=== PATIENT | female | born 1965 | race African-American/Black ===

== ENCOUNTER 2018-06-10 18:52 | Emergency (ER) | payer SELFPAY ==
--- NOTE | 2018-06-10 20:10 | PDOC ---
Rapid Medical Evaluation Chief Complaint: Injury Time Seen by Provider: 06/10/18 20:01 Medical Evaluation: I have performed a brief in-person evaluation of this patient. The patient presents with a chief complaint of: s/p mechanical fall 2 days ago, c/o R knee, R hip and R arm pain; hx of R hip replacement, cervical and lumbar spinal surgeries Pertinent physical exam findings: +R knee abrasion, no swelling or deformity I have ordered the following: Xray Patient hypertensive in triage (BP checked in both arms); denies hx of HTN; denies cp, sob, jonas, n/v Will get labs, EKG as well The patient will proceed to the ED for further evaluation. 06/10/18 20:06
[2018-06-10 20:12] VITALS: TEMP 97.9; BMI 30.2
[2018-06-10] MEDS ORDERED: ACETAMINOPHEN 325 MG TABLET (FP) ONE (20:28)
[2018-06-10] MEDS ORDERED: ACETAMINOPHEN 325 MG TABLET (FP) PO ONE (20:30)
[2018-06-10 20:47] LABS: BASO % 0.4 % (0-2.0); EOS % 1.7 % (0-4.5); HEMATOCRIT 38.1 % (32.4-45.2); HEMOGLOBIN 12.7 GM/dL (10.7-15.3); LYMPH % 42.2 % (8-40); MCH 26.8 pg (25.7-33.7); MCHC 33.3 g/dl (32.0-36.0); MEAN CELL VOLUME 80.5 fl (80-96); MEAN PLT VOLUME 9.1 fl (7.5-11.1); MONO % 10.7 % (3.8-10.2); PLATELET COUNT 258 K/MM3 (134-434); RBC 4.73 M/mm3 (3.60-5.2); RDW 14.6 % (11.6-15.6); WHITE BLOOD COUNT 9.2 K/mm3 (4.0-10.0)
[2018-06-10 21:09] LABS: ANION GAP 3 MMOL/L (8-16); BLOOD UREA NITROGEN 9 mg/dL (7-18); CALCIUM 8.9 mg/dL (8.5-10.1); CHLORIDE 106 mmol/L (98-107); CO2 30 mmol/L (21-32); CREATININE 0.8 mg/dL (0.55-1.3); GLUCOSE,RANDOM 91 mg/dL (74-106); POTASSIUM 3.8 mmol/L (3.5-5.1); SODIUM 140 mmol/L (136-145)
--- NOTE | 2018-06-10 22:58 | PDOC ---
*Physical Exam - Vital Signs Last Vital Signs Temp Pulse Resp BP Pulse Ox 97.9 F 79 16 199/98 H 100 06/10/18 20:07 06/10/18 20:07 06/10/18 20:07 06/10/18 20:07 06/10/18 20:07 ED Treatment Course - LABORATORY CBC & Chemistry Diagram: 06/10/18 20:21 06/10/18 20:21 - ADDITIONAL ORDERS Additional order review: Laboratory Results 06/10/18 20:21 Sodium 140 Potassium 3.8 Chloride 106 Carbon Dioxide 30 Anion Gap 3 L BUN 9 Creatinine 0.8 Creat Clearance w eGFR 74.47 Random Glucose 91 Calcium 8.9 06/10/18 20:21 RBC 4.73 MCV 80.5 MCHC 33.3 RDW 14.6 MPV 9.1 Neutrophils % 45.0 Lymphocytes % 42.2 H Monocytes % 10.7 H Eosinophils % 1.7 Basophils % 0.4 - Medications Given in the ED: ED Medications Discontinued Medications Generic Name Dose Route Start Last Admin Trade Name Shanell PRN Reason Stop Dose Admin Acetaminophen 975 mg 06/10/18 20:30 06/10/18 20:31 Tylenol - PO 06/10/18 20:31 975 mg ONCE ONE Administration Medical Decision Making - Medical Decision Making 06/10/18 22:57 Patient seen by the advanced practice provider under my direct supervision. Ancillary testing reviewed as necessary. I agree with plan as outlined by the advanced practice provider. *DC/Admit/Observation/Transfer Diagnosis at time of Disposition: Fall - Referrals Referrals: ON STAFF,NOT [Primary Care Provider] - - Patient Instructions - Post Discharge Activity
--- NOTE | 2018-06-10 23:05 | PDOC ---
History of Present Illness - General Chief Complaint: Injury Stated Complaint: RT ARM PAIN/BILATERAL LEG PAIN Time Seen by Provider: 06/10/18 20:01 History Source: Patient - History of Present Illness Initial Comments: 06/11/18 01:47 53-year-old female status post trip and fall complaining of neck pain lower back pain right hip pain, right wrist and forearm pain and right knee pain. Patient has past medical history of multiple spinal fusions, right hip replacement and right wrist surgery. Patient has pain worse with movement no deformity, edema noted. No numbness or tingling to the lower extremity. No saddle anesthesia. No incontinence of bowel or urine. Past History - Past Medical History Allergies/Adverse Reactions: Allergies Allergy/AdvReac Type Severity Reaction Status Date / Time No Known Allergies Allergy Verified 06/10/18 20:12 Home Medications: Ambulatory Orders Oxycodone HCl/Acetaminophen [Percocet 5-325 mg Tablet] 1 tab PO Q6H PRN COPD: No CHF: No - Suicide/Smoking/Psychosocial Hx Smoking History: Never smoked Have you smoked in the past 12 months: No Information on smoking cessation initiated: No Hx Alcohol Use: No Drug/Substance Use Hx: No Review of Systems - Review of Systems Able to Perform ROS?: Yes Is the patient limited Czech proficient: No Constitutional: No: Symptoms Reported, See HPI, Chills, Diaphoresis, Fever, Loss of Appetite, Malaise, Night Sweats, Weakness, Weight Stable, Unintentional Wgt. Loss, Unexplained wgt Loss, Other ABD/GI: No: Symptoms Reported, See HPI, Abdominal Distended, Abd. Pain w/ defecation, Blood Streaked Bowels, Constipated, Diarrhea, Difficulty Swallowing , Nausea, Poor Appetite, Poor Fluid Intake, Rectal Bleeding, Vomiting, Indigestion, Abdominal cramping, Tarry Stools, Other Musculoskeletal: Yes: Back Pain, Joint Pain, Muscle Pain Integumentary: No: Symptoms Reported, See HPI, Bruising, Change in Color, Change in Hair/Nails, Dryness, Erythema, Flushing, Lesions, Lumps, Pallor, Pruritus, Rash, Sweating, Other *Physical Exam - Vital Signs Last Vital Signs Temp Pulse Resp BP Pulse Ox 97.9 F 79 16 199/98 H 100 06/10/18 20:07 06/10/18 20:07 06/10/18 20:07 06/10/18 20:07 06/10/18 20:07 - Physical Exam General Appearance: Yes: Appropriately Dressed Extremity: positive: Normal Capillary Refill, Normal Inspection, Normal Range of Motion, Other (full rom no deformity. has midline tenderness at c-spine and l - spine area. walking around) Integumentary: positive: Normal Color, Dry, Warm Neurologic: positive: Fully Oriented, Alert Moderate Sedation - Procedure Monitoring Vital Signs: Procedure Monitoring Vital Signs Temperature 97.9 F 06/10/18 20:07 Pulse Rate 79 06/10/18 20:07 Respiratory Rate 16 06/10/18 20:07 Blood Pressure 199/98 H 06/10/18 20:07 O2 Sat by Pulse Oximetry (%) 100 06/10/18 20:07 ED Treatment Course - LABORATORY CBC & Chemistry Diagram: 06/10/18 20:21 06/10/18 20:21 - ADDITIONAL ORDERS Additional order review: Laboratory Results 06/10/18 20:21 Sodium 140 Potassium 3.8 Chloride 106 Carbon Dioxide 30 Anion Gap 3 L BUN 9 Creatinine 0.8 Creat Clearance w eGFR 74.47 Random Glucose 91 Calcium 8.9 06/10/18 20:21 RBC 4.73 MCV 80.5 MCHC 33.3 RDW 14.6 MPV 9.1 Neutrophils % 45.0 Lymphocytes % 42.2 H Monocytes % 10.7 H Eosinophils % 1.7 Basophils % 0.4 - Medications Given in the ED: ED Medications Discontinued Medications Generic Name Dose Route Start Last Admin Trade Name Freq PRN Reason Stop Dose Admin Acetaminophen 975 mg 06/10/18 20:30 06/10/18 20:31 Tylenol - PO 06/10/18 20:31 975 mg ONCE ONE Administration Progress Note - Progress Note Progress Note: A; s/; fall *DC/Admit/Observation/Transfer Diagnosis at time of Disposition: Right hip pain, Neck pain, Wrist pain, right, Right elbow pain Fall Qualifiers: Encounter type: initial encounter Qualified Code(s): W19.XXXA - Unspecified fall, initial encounter Lower back pain Qualifiers: Chronicity: acute Back pain laterality: bilateral Sciatica presence: without sciatica Qualified Code(s): M54.5 - Low back pain - Discharge Dispostion Disposition: HOME - Referrals Referrals: ON STAFF,NOT [Primary Care Provider] - Jaleel Horner MD [Staff Physician] - - Patient Instructions Printed Discharge Instructions: How to Prevent Falls Additional Instructions: You may take ibuprofen every 6 hours as needed for pain. follow up with your orthopedic doctor as soon as possible - Post Discharge Activity
[2018-06-11] MEDS ORDERED: KETOROLAC TROMETHAMINE 30 MG/1 ML VIAL IM ONE (01:01)
[2018-06-11] MEDS ORDERED: KETOROLAC TROMETHAMINE 30 MG/1 ML VIAL ONE (01:42)
[2018-06-11 02:16] VITALS: BP 155/84; PULSE 65
--- NOTE | 2018-06-11 12:09 | EKG ---
Test Reason : Blood Pressure : / mmHG Vent. Rate : 066 BPM Atrial Rate : 066 BPM P-R Int : 130 ms QRS Dur : 074 ms QT Int : 410 ms P-R-T Axes : 060 020 036 degrees QTc Int : 429 ms NORMAL SINUS RHYTHM POSSIBLE LEFT ATRIAL ENLARGEMENT BORDERLINE ECG NO PREVIOUS ECGS AVAILABLE Confirmed by RUFINA STREETER MD ([id number]) on 06/11/2018 12:09:30 PM Referred By: Confirmed By:RUFINA STREETER MD
== END 2018-06-11 02:36 | disposition home or self-care (01) ==
LOC: JER 18:52
PROC: 3E0233Z Introduction of Anti-inflammatory into Muscle, Percutaneous Approach (ICD-10-PCS; principal; 2018-06-10)
DX: M54.2 Cervicalgia (principal); M54.5 Low back pain; M79.651 Pain in right thigh; M25.561 Pain in right knee; S80.211A Abrasion, right knee, initial encounter; W18.30XA Fall on same level, unspecified, initial encounter; Y93.89 Activity, other specified; Y92.89 Other specified places as the place of occurrence of the external cause; Y99.8 Other external cause status; Z96.641 Presence of right artificial hip joint; Z98.1 Arthrodesis status
CPT/HCPCS: 36415; 72125-TC; 72131-TC; 72192-TC; 73090-TC-RT-FY; 73110-TC-RT-FY; 73130-TC-RT-FY; 73564-TC-RT-FY; 80048; 85025; 93005; 93010; 99283-25